=== PATIENT | male | born 1955 | race Caucasian/White ===

== ENCOUNTER → 2017-02-19 | Outpatient (CLI) | payer OTHER | LOC: FIMAGING 15:25 | PROVIDERS: ATTEND Internal Medicine Hematology & Oncology | DX: I82.412 Acute embolism and thrombosis of left femoral vein (principal); Z86.718 Personal history of other venous thrombosis and embolism; Z79.01 Long term (current) use of anticoagulants ==

== ENCOUNTER → 2017-05-01 | Outpatient (CLI) | payer OTHER | LOC: FIMAGING 15:44 | PROVIDERS: ATTEND Internal Medicine Hematology & Oncology | DX: I82.402 Acute embolism and thrombosis of unspecified deep veins of left lower extremity (principal) ==

== ENCOUNTER → 2017-08-14 | Outpatient (CLI) | payer OTHER | LOC: CIMAGING 07:13 | PROVIDERS: ATTEND Internal Medicine Hematology & Oncology | DX: Z86.718 Personal history of other venous thrombosis and embolism (principal); Z09 Encounter for follow-up examination after completed treatment for conditions other than malignant neoplasm | CPT/HCPCS: 93971-PO ==